=== PATIENT | female | born 1980 | race Caucasian/White ===

== ENCOUNTER 2017-06-08 06:51 | Emergency (ER) | payer OTHER ==
[2017-06-08 07:15] LABS: #Basophils 0.1 thou/uL (0.0-0.2); #Eosinphils 0.1 thou/uL (0.0-0.7); #Lymphocytes 1.6 thou/uL (1.20-3.40); #Monocytes 0.3 thou/uL (0.11-0.59); #Neutrophils 2.6 thou/uL (1.40-6.50); %Basophils 1.6 % (0.0-1.0); %Eosinophils 1.7 % (0.0-10.0); %Lymphocytes 35.1 % (21.0-51.0); %Monocytes 6.4 % (0.0-10.0); %Neutrophils 55.2 % (42.0-75.0); Hemoglobin 14.4 g/dL (12.0-16.0); Mean Corpuscular HGB CONC 33.2 g/dL (32.0-36.0); Mean Corpuscular Hemoglobin 29.9 pg (27.0-31.0); Mean Corpuscular Volume 90.1 fl (81.0-99.0); Mean Platelet Volume 7.3 fL (7.4-10.4); Platelet Count 226 thou/uL (130-400); RBC Distribution Width 12.1 % (11.5-14.5); Red Blood Cell (RBC) Count 4.81 mill/uL (4.20-5.40); White Blood Cell (WBC) Count 4.7 thou/uL (4.8-10.8)
[2017-06-08 07:29] LABS: PTT 28.3 SEC (22.9-36.1)
[2017-06-08 07:30] LABS: D-Dimer Test 0.27 *mcg/mL (0.27-0.43); INR-International Normal Ratio 0.9; Prothrombin Time 12.4 SEC (12.0-14.7)
[2017-06-08 07:33] LABS: ALT (SGPT) 14 U/L (8-55); AST (SGOT) 13 U/L (5-34); Albumin 4.4 g/dL (3.5-5.0); Alkaline Phosphatase 42 U/L (40-150); Anion Gap 14 mmol/L (10-20); BUN (Urea Nitrogen) 8 mg/dL (7.0-18.7); Bilirubin, Total 0.8 mg/dL (0.2-1.2); Calc. Creatinine Clearance 0 mL/min (70-130); Calcium 9.4 mg/dL (7.8-10.44); Carbon Dioxide 25 mmol/L (22-29); Chloride 103 mmol/L (98-107); Estimated GFR-MDRD 87; Globulin 2.3 g/dL (2.4-3.5); Glucose 101 mg/dL (70-105); Potassium 3.4 mmol/L (3.5-5.1); Protein, Total 6.7 g/dL (6.0-8.3); Sodium 139 mmol/L (136-145)
[2017-06-08 07:35] LABS: CKMB 0.5 ng/mL (0-6.6); Troponin I Less than 0.010 ng/mL (< 0.028)
--- NOTE | 2017-06-08 17:17 | RAD ---
PORTABLE CHEST: Date: 06-08-17 FINDINGS: An AP portable film at 0659 is compared with a 06-25-15 study. The heart is normal in size and the lungs are clear. No infiltrate, effusion, mass or adenopathy was seen. Parenchyma appears normal. Trachea is midline. The bony structures appear normal. IMPRESSION: No acute thoracic findings. POS: HOME
== END 2017-06-08 08:20 | disposition home or self-care (01) ==
LOC: BURERS 06:51
DX: R00.2 Palpitations (principal); J45.909 Unspecified asthma, uncomplicated; F41.9 Anxiety disorder, unspecified; Z79.899 Other long term (current) drug therapy
CPT/HCPCS: 71010; 80053; 82553; 83690; 84443; 84484; 85025; 85379; 85610; 85652; 85730; 93005; 94760

== ENCOUNTER 2017-06-24 12:00 | Outpatient (CLI) | payer OTHER ==
--- NOTE | 2017-06-24 17:47 | ULT ---
BILATERAL RENAL ULTRASOUND: 06/24/17 Ultrasonography of the urinary tract was performed for evaluation of urinary tract infections. Both k idneys appear normal. The right kidney measures 9.8 x 4.1 x 4.1 cm and the left measures 10.1 x 4.3 x 4.4 cm. No mass, hydronephrosis or cortical scarring was seen. The cortex was ample in thickness and normal in echogenicity. The urinary bladder contain no internal defects. Bilateral ureteral jets wer e seen. The bladder wall thickness was 3 mm which is probably still acceptable given that the bladder was not fully distended. IMPRESSION: No significant urinary tract findings. POS: HOME
== END 2017-06-24 12:01 | disposition home or self-care (01) ==
LOC: BURULT 12:00
PROVIDERS: ATTEND Urology
DX: Z09 Encounter for follow-up examination after completed treatment for conditions other than malignant neoplasm (principal); Z87.440 Personal history of urinary (tract) infections
CPT/HCPCS: 76770

== ENCOUNTER 2018-07-14 14:00 | Outpatient (CLI) | payer OTHER ==
--- NOTE | 2018-07-14 14:38 | RAD ---
SACRUM AND COCCYX THREE VIEWS: History: 38-year-old female with history of sacral and coccygeal injury following a fall. FINDINGS: There is some slight bending deformity of what appears to be the four sacral vertebrae with some luce ncy transversely through the posterior elements at this region concerning for the possibility of a no ndisplaced sacral fracture. Depending upon the concern, follow up additional imaging with CT might be considered. IMPRESSION: Evidence for a nondisplaced transverse sacral fracture. POS: [facility]
== END 2018-07-14 14:01 | disposition home or self-care (01) ==
LOC: BURRAD 14:00
PROVIDERS: ATTEND Physician Assistant
DX: Z04.3 Encounter for examination and observation following other accident (principal); S32.10XA Unspecified fracture of sacrum, initial encounter for closed fracture; W19.XXXA Unspecified fall, initial encounter
CPT/HCPCS: 72220

== ENCOUNTER 2019-03-17 11:25 | Emergency (ER) | payer OTHER ==
[2019-03-17] MEDS ORDERED: HYDROmorphone 0.5 MG/0.5 ML SYRINGE ONE ×4 (11:49→15:09)
[2019-03-17 11:52] LABS: #Lymphocytes 1.2 thou/uL (1.20-3.40); #Monocytes 0.2 thou/uL (0.11-0.59); #Neutrophils 3.2 thou/uL (1.40-6.50); %Basophils 0.8 % (0.0-1.0); %Eosinophils 0.4 % (0.0-10.0); %Lymphocytes 25.3 % (21.0-51.0); %Monocytes 4.9 % (0.0-10.0); %Neutrophils 68.6 % (42.0-75.0); Hemoglobin 13.9 g/dL (12.0-16.0); Mean Corpuscular HGB CONC 33.2 g/dL (32.0-36.0); Mean Corpuscular Hemoglobin 30.5 pg (27.0-31.0); Mean Corpuscular Volume 91.8 fL (78.0-98.0); Mean Platelet Volume 6.4 fL (7.4-10.4); Platelet Count 240 thou/uL (130-400); RBC Distribution Width 11.8 % (11.5-14.5); Red Blood Cell (RBC) Count 4.55 mill/uL (4.20-5.40); White Blood Cell (WBC) Count 4.7 thou/uL (4.8-10.8)
[2019-03-17 12:08] LABS: ALT (SGPT) 9 U/L (8-55); AST (SGOT) 11 U/L (5-34); Albumin 4.7 g/dL (3.5-5.0); Alkaline Phosphatase 34 U/L (40-150); Anion Gap 13 mmol/L (10-20); BUN (Urea Nitrogen) 7 mg/dL (7.0-18.7); Bilirubin, Total 0.6 mg/dL (0.2-1.2); Calc. Creatinine Clearance 0 mL/min (70-130); Calcium 9.7 mg/dL (7.8-10.44); Carbon Dioxide 27 mmol/L (22-29); Chloride 102 mmol/L (98-107); Estimated GFR-MDRD 82; Globulin 2.2 g/dL (2.4-3.5); Glucose 161 mg/dL (70-105); Potassium 3.8 mmol/L (3.5-5.1); Protein, Total 6.9 g/dL (6.0-8.3); Sodium 138 mmol/L (136-145)
[2019-03-17 12:11] LABS: BHCG - Serum Negative (NEGATIVE); Pregs Control Background? CLEAR/WHITE (CLR/WHITE); Pregs Control Bar Appear? YES (CONTROL BAR)
--- NOTE | 2019-03-17 14:17 | CT ---
CT ABDOMEN AND PELVIS WITH CONTRAST: DATE: 03/17/2019. FINDINGS: Comparison is made with the prior CT scan dated 09/07/2015. A pelvic MRI done earlier this year was [facility] as well. Axial slices were acquired after giving IV contrast. Coronal and sagittal reconstr uctions were then done. The lung bases are clear. No pulmonary nodules, effusions, or other pathology of concern was seen he re. The liver appears normal. No space-occupying disease or dilated ducts are present. The spleen is ra ther generous in size measuring just over 13 cm in length; however, it is no different in appearance than the prior study. Regarding the pancreas, the tail seems somewhat elongated and redundant. On t he axial slices, there were portions that looked rounded and almost mass-like, but the reconstruction s show that this is more of an elongated redundancy. While the 2016 noncontrast scan is not as valdo rable, the appearance is virtually identical on that study as well. I doubt any significance to this . The kidneys, adrenal glands, and abdominal aorta appear normal. The mesenteric vessels fill appro priately. There is no dilation of bowel to suggest matilda obstruction. No bowel wall thickening was seen. Ther e is some extra fluid in the terminal ileum and cecum which is nonspecific in appearance. No free ai r or free fluid was seen. CT of the pelvis showed distention of the urinary bladder. The patient's known mass in the left scia tic notch is noted. It measures approximately 5.2 x 3.0 cm which is larger than in the past. I do n ot have recent CT scans to compare with. It seems somewhat larger than on the July MRI, but the 2 studies are not completely comparable. There is no free fluid in the pelvis. No adnexal masses wer e seen. No adenopathy was noted. No acute bony changes were appreciated. IMPRESSION: 1. Known mass in the left sciatic notch which seems larger than on the remote scans. Comparison wit h more recent scans done elsewhere might be more instructive. 2. No obvious evidence of metastatic disease. 3. Nonspecific fluid in the cecum and terminal ileum. The significance may be minimal or could be c onnected to enteritis or ileus. 4. Mildly prominent splenic size, but unchanged over 3 years. 5. Prominence of the pancreatic tail, but looking at reconstructions and old scans, there does not a ppear to be any change. 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 Second opinion obtained with [facility] radiologist. The scan was also discussed with Dr. Jimenez at 1309 o n 03/17/2019. CODE CR POS: HOME
[2019-03-17 14:24] LABS: Bilirubin Negative (Negative); Blood, Urine Negative (Negative); Clarity Clear (Clear); Glucose, Urine (Dipstick) Negative (Negative); Leukocyte Negative (Negative); Nitrite Negative (Negative); Protein, Urine (Dipstick) Negative (Neg-Trace)
[2019-03-17] MEDS ORDERED: Ketorolac Tromethamine 30 MG/ML VIAL ONE (15:32)
== END 2019-03-17 16:25 | disposition home or self-care (01) ==
LOC: BURERS 11:25
DX: M54.5 Low back pain (principal); R33.9 Retention of urine, unspecified; I49.9 Cardiac arrhythmia, unspecified; J45.909 Unspecified asthma, uncomplicated; F41.9 Anxiety disorder, unspecified; Z79.899 Other long term (current) drug therapy
CPT/HCPCS: 51702; 74177; 80053; 81003; 84703; 85025; 96374; 96375; 96376; J1170; J1885

== ENCOUNTER 2019-03-21 14:24 | Day surgery (SDC) | payer OTHER ==
[2019-03-21 15:34] VITALS: BP 154/94; TEMP 98.2
[2019-03-22 12:29] LABS: Bacteria/HPF None Seen HPF (None Seen); RBC/HPF 0-3 HPF (0-3); Squamous Epithelial 0-3 HPF (0-3); WBC/HPF 0-3 HPF (0-3)
== END 2019-03-21 16:00 | disposition home or self-care (01) ==
LOC: BUR/OP 14:24
PROVIDERS: ATTEND Physician Assistant
DX: Z46.6 Encounter for fitting and adjustment of urinary device (principal)
CPT/HCPCS: 81015; 87086

== ENCOUNTER 2019-11-15 17:30 | Emergency (ER) | payer OTHER ==
[2019-11-15] MEDS ORDERED: Ketorolac Tromethamine 30 MG/ML VIAL ONE (18:50)
[2019-11-15 19:05] LABS: #Basophils 0.1 thou/uL (0.0-0.2); #Lymphocytes 1.7 thou/uL (1.20-3.40); #Monocytes 0.2 thou/uL (0.11-0.59); #Neutrophils 4.2 thou/uL (1.40-6.50); %Basophils 1.1 % (0.0-1.0); %Eosinophils 0.8 % (0.0-10.0); %Lymphocytes 26.8 % (21.0-51.0); %Monocytes 3.8 % (0.0-10.0); %Neutrophils 67.6 % (42.0-75.0); Hemoglobin 12.6 g/dL (12.0-16.0); Mean Corpuscular HGB CONC 32.3 g/dL (32.0-36.0); Mean Corpuscular Volume 92.9 fL (78.0-98.0); Mean Platelet Volume 7.4 fL (7.4-10.4); Platelet Count 252 thou/uL (130-400); RBC Distribution Width 11.8 % (11.5-14.5); Red Blood Cell (RBC) Count 4.19 mill/uL (4.20-5.40); White Blood Cell (WBC) Count 6.3 thou/uL (4.8-10.8)
[2019-11-15 19:12] LABS: Bilirubin Negative (Negative); Blood, Urine Negative (Negative); Clarity Clear (Clear); Glucose, Urine (Dipstick) Negative (Negative); Leukocyte Negative (Negative); Nitrite Negative (Negative); Protein, Urine (Dipstick) Negative (Neg-Trace); Urobilinogen 0.2 mg/dL (Less than 2)
--- NOTE | 2019-11-15 19:13 | CT ---
NONCONTRAST CT HEAD: 11/15/19 HISTORY: Headache. COMPARISON: None. FINDINGS: There is no evidence of a hemorrhage, acute infarction, mass effect, or midline shift. The ventricula r system is normal in size, shape, and position. Visualized paranasal sinuses and mastoid air cells a re clear. Calvarial structures have a normal appearance. IMPRESSION: No acute intracranial abnormality demonstrated. POS: [facility]
[2019-11-15 19:15] LABS: CRP (Inflammatory) 0.6 mg/dL (= or < 0.5); MONO NEGATIVE CONTROL ZONE White (Negative) (White); MONO POSITIVE CONTROL Pink Line (Positive) (PINK/RED); Mononucleosis NEGATIVE (NEGATIVE); Pregnancy Test - Urine (BHCG) Negative (Negative)
[2019-11-15 19:16] LABS: Pregu Control Background? CLEAR/WHITE (CLR/WHITE); Pregu Control Bar Appear? YES (CONTROL BAR)
[2019-11-15 19:17] LABS: ALT (SGPT) 8 U/L (8-55); AST (SGOT) 14 U/L (5-34); Albumin 4.6 g/dL (3.5-5.0); Alkaline Phosphatase 40 U/L (40-110); Anion Gap 14 mmol/L (10-20); BUN (Urea Nitrogen) 5 mg/dL (7.0-18.7); Bilirubin, Total 0.4 mg/dL (0.2-1.2); Calc. Creatinine Clearance 0 mL/min (70-130); Calcium 9.2 mg/dL (7.8-10.44); Carbon Dioxide 26 mmol/L (22-29); Chloride 103 mmol/L (98-107); Estimated GFR-MDRD Greater than 90; Globulin 2.2 g/dL (2.4-3.5); Glucose 96 mg/dL (70-105); Potassium 3.7 mmol/L (3.5-5.1); Protein, Total 6.8 g/dL (6.0-8.3); Sodium 139 mmol/L (136-145)
--- NOTE | 2019-11-15 19:23 | RAD ---
TWO VIEWS CHEST: 11/15/19 HISTORY: Fever of unknown origin. COMPARISON: 06/25/16 and portable chest x-ray on 03/26/18. FINDINGS: The cardiac silhouette and pulmonary vasculature are within normal limits. The lungs remain clear. Th ere has been no interval change compared to prior exam. IMPRESSION: No acute cardiopulmonary process. POS: [facility]
[2019-11-15] MEDS ORDERED: Lidocaine 2% 6 ML SYR ONE (19:36)
[2019-11-15] MEDS ORDERED: Fentanyl 100 MCG/2 ML VIAL ONE ×2 (19:50→20:58)
[2019-11-15] MEDS ORDERED: Acetaminophen 500 MG TAB ONE (21:20)
[2019-11-15 23:06] LABS: Color Of CSF Supernatant COLORLESS (Colorless); Tube # 2; Unspun CSF Color COLORLESS (Colorless)
[2019-11-15 23:19] LABS: CSF, Glucose 58 mg/dl (40-70); CSF, Protein 30 mg/dL (15-40)
[2019-11-15 23:42] LABS: CSF Source CSF; Clarity Clear (Clear); Tube # 1
[2019-11-15 23:44] LABS: CSF Source CSF; Clarity Clear (Clear); Tube # 4
[2019-11-15] MEDS ORDERED: HYDROmorphone 0.5 MG/0.5 ML SYRINGE ONE (23:57)
[2019-11-18 07:13] LABS: CMV IgG AB Greater than 10.00 U/mL (0.00-0.59)
[2019-11-18 11:37] LABS: West Nile Virus IgG Ab - CSF Negative (Negative); West Nile Virus IgM Ab - CSF Negative (Negative)
== END 2019-11-16 01:55 | disposition short-term general hospital (02) ==
LOC: BURERS 17:30
DX: I60.9 Nontraumatic subarachnoid hemorrhage, unspecified (principal); I49.9 Cardiac arrhythmia, unspecified; J45.909 Unspecified asthma, uncomplicated; F41.9 Anxiety disorder, unspecified; Z79.899 Other long term (current) drug therapy
CPT/HCPCS: 62270; 70450; 71046; 80053; 81003; 81025; 82945; 83605; 83690; 84157; 85025; 85652; 86140; 86308; 86644; 86645; 86757; 86788; 86789; 87070; 87205; 89051; 93005; 94760; 96374; 96375; 96376; J1170; J1885; J3010

== ENCOUNTER 2020-01-18 15:27 | Outpatient (CLI) | payer OTHER | END 2020-01-18 15:28 | disposition home or self-care (01) | LOC: BURLAB 15:27 | PROVIDERS: ATTEND Family Medicine | DX: Z20.828 Contact with and (suspected) exposure to other viral communicable diseases (principal) | CPT/HCPCS: U0002 ==

== ENCOUNTER 2021-02-07 12:36 | Outpatient (CLI) | payer OTHER | END 2021-02-07 12:37 | disposition home or self-care (01) | LOC: BURRAD 12:36 | PROVIDERS: ATTEND Family Medicine | DX: Z00.00 Encounter for general adult medical examination without abnormal findings (principal); Z96.89 Presence of other specified functional implants | CPT/HCPCS: 72072 ==

== ENCOUNTER 2024-03-03 18:53 | Emergency (ER) | payer BC ==
[2024-03-03] MEDS ORDERED: Lidocaine 1% (PF) 30 ML VIAL ONE (19:13)
== END 2024-03-03 19:42 | disposition home or self-care (01) ==
LOC: BURERS 18:53
DX: S61.211A Laceration without foreign body of left index finger without damage to nail, initial encounter (principal); W26.8XXA Contact with other sharp object(s), not elsewhere classified, initial encounter
CPT/HCPCS: 12001; 99282; J2001